=== PATIENT | male | born 1940 | race Caucasian/White ===

== ENCOUNTER 2024-10-01 07:49 | Emergency (ER) | payer OTHER ==
[~2024-10-01] VITALS: Ht 175.3 cm; Wt 75.0 kg
[~2024-10-01 07:49] MED LIST: ASPI81CH43; GLIP10TA21; LISI10TA34; METO-289; Metformin Hcl; SITA50TA; [UNRECOGNIZED DRUG - CODE]
[2024-10-01 08:23] VITALS: PULSE 66; RESP 20; O2SAT 96
--- NOTE | 2024-10-01 08:40 | DVH ---
CLINICAL INFORMATION: 83 years old, Male; SHORTNESS OF BREATH. TECHNIQUE: Single AP portable chest radiograph was obtained. COMPARISON: None FINDINGS: Lungs: Blunting of the right costophrenic angle suggesting small right pleural effusion with overlyin g atelectasis and/or consolidation. Mild atelectasis in the left lung base. Cardiac: Heart size is within normal limits. Pacemaker leads extend to the right atrium and right domenico tricle. Pulmonary vasculature: Mildly prominent pulmonary vasculature. Mediastinum/frank: Dense atherosclerotic calcification of the thoracic aorta. Bones: No acute osseous abnormality identified. Other: No other significant findings. IMPRESSION: 1. Small right pleural effusion with overlying atelectasis and/or consolidation. 2. Prominence of the pulmonary vasculature may be seen with a degree of pulmonary vascular congestion in the appropriate clinical setting.
--- NOTE | 2024-10-01 08:49 | ED.PDOC ---
SOB-HPI HPI Comments 83M BIBA w/ prior Hx of AFIB, MO and pacemaker which all may be associated to the c/c of SOB. Pt reports on having the SOB for 1 hour and was unable to walk and that it is "hard to breathe" which is also associated w/ bilateral Edema. PMHx of DM, HTN and Iron Transfusion. SHx of Right big toe amputation. Denies chills, fever, N/V/D, CP or other associated symptom's, modifiers, or recent injuries or sick contact at this time. Chief Complaint: Shortness of Breath Time Seen by MD: 08:10 Primary Care Provider: UNKNOWN Reviewed notes: Nurses Notes, Bark Fitter Notes, Medications, Allergies Information Source: Patient, Emergency Med Personnel Mode of Arrival: EMS Severity: Moderate Timing: Minutes Duration: Since onset, Minutes Context: At Rest PE Risk Factors: None History of: None Prehospital treatment: None Past Medical History PAST MEDICAL HISTORY: AFIB, DM, HTN, MO Past Medical History (Other): Iron Transfusion Surgical History: Pacemaker Surgical History (Other): Right big Toe Amputee Family History Family History: Reviewed,noncontributory to illness, Unknown Social History Smoker: Non-Smoker Alcohol: Denies ETOH Use Drugs: Denies Drug Use Lives In: Home Constitutional: denies: chills, diaphoresis, fatigue, fever, malaise, sweats, weakness, others EENTM: denies: blurred vision, double vision, ear bleeding, ear discharge, ear drainage, ear pain, ear ringing, eye pain, eye redness, hearing loss, mouth pain , mouth swelling, nasal discharge, nose bleeding, nose congestion, nose pain, photophobia, tearing, throat pain, throat swelling, voice changes, others Respiratory: reports: shortness of breath; denies: cough, hemoptysis, orthopnea, SOB at rest, SOB with excertion, stridor, wheezing, others Cardiovascular: reports: edema (Bilateral); denies: chest pain, dizzy spells, diaphoresis, Dyspnea on exertion, irregular heart beat, left arm pain, lightheadedness, palpitations, PND, syncope, others Gastrointestinal: denies: abdomen distended, abdominal pain, blood streaked bowels, constipated, diarrhea, dysphagia, difficulty swallowing, hematemesis, melena, nausea, poor appetite, poor fluid intake, rectal bleeding, rectal pain, vomiting, others Genitourinary: denies: burning, dysuria, flank pain, frequency, hematuria, incontinence, penile discharge, penile sore, pain, testicle pain, testicle swelling, urgency, others Neurological: denies: dizziness, fainting, headache, left sided numbness, left sided weakness, numbness, paresthesia, pre-existing deficit, right sided numbness, right sided weakness, seizure, speech problems, tingling, tremors, weakness, others Musculoskeletal: denies: back pain, gout, joint pain, joint swelling, muscle pain, muscle stiffness, neck pain, others Integumetry: denies: bruises, change in color, change in hair/nails, dryness, laceration, lesions, lumps, rash, wounds, others Allergic/Immunocompromised: denies: Difficulty Healing, Frequent Infections, Hives, Itching, others Hematologic/Lymphatic: denies: anemia, blood clots, easy bleeding, easy bruising, swollen glands, others Endocrine: denies: excessive hunger, excessive sweating, excessive thirst, excessive urination, flushing, intolerance to cold, intolerance to heat, unexplained weight gain, unexplained weight loss, others Psychiatric: denies: anxiety, bipolar disorder, depression, hopeless, panic disorder, schizophrenia, sleepless, suicidal, others All Other Systems: Reviewed and Negative Physical Exam General Appearance: No Apparent Distress, Normal HEENT: Normal ENT Inspection, PERRL/EOMI, Pharynx Normal, TMs Normal Neck: Full Range of Motion, Non-Tender, Normal, Normal Inspection Respiratory: Chest Non-Tender, Crackles, Decreased Breath Sounds, Expiration, Inspiration, No Accessory Muscle Use, No Respiratory Distress Cardiovascular: No Edema, No JVD, No Murmur, No Gallop, Normal Peripheral Pulses, Regular Rate/Rhythm Breast Exam: Deferred Gastrointestinal: No Organomegaly, Non Tender, No Pulsatile Mass, Normal Bowel Sounds, Soft Genitalia: Deferred Pelvic: Deferred Rectal: Deferred Extremities: Leg edema, No calf tenderness, Normal capillary refill, Normal inspection, Normal range of motion, Non-tender, Pedal edema Musculoskeletal : Apperance: Normal Neurologic: Alert, environmental lawyer II-XII nml as Tested, No Motor Deficits, Normal Affect, Normal Mood, No Sensory Deficits Cerebellar Function: Normal Reflexes: Normal Skin: Dry, Normal Color, Warm Peripheral Pulses: 1+ carotid (R), 1+ carotid (L) Lymphatic: No Adenopathy EKG EKG : Pulse Rate (adult): 77 Cardiac Rhythm: Paced Was a procedure done? Was a procedure done?: No Differential Dx Differential Diagnosis: Bronchitis, CHF, COPD, Dysrhythmia, Hypertension, Hyponatremia, Myocardial infarction, Pneumonia, Sinusitis, URI X-Ray, Labs, Meds, VS Vital Signs Date Time Temp Pulse Resp B/P (MAP) Pulse Ox O2 Delivery O2 Flow Rate FiO2 10/01/24 14:00 67 27 109/46 (67) 94 10/01/24 12:00 60 24 114/44 (67) 97 10/01/24 12:00 62 10/01/24 10:00 60 24 105/38 (60) 95 10/01/24 09:06 129/45 10/01/24 08:52 77 10/01/24 08:25 70 10/01/24 08:23 66 20 96 Nasal Cannula* 2 28 10/01/24 08:11 98.0 77 15 157/47 (83) 97 98.0 10/01/24 07:57 99.0 74 18 161/62 (95) 96 10/01/24 07:49 77 Lab Test 10/01/24 11:53 10/01/24 08:28 Range/Units Urine Color Yellow Yellow Urine Clarity Clear Clear Urine pH 5.0 5.0-9.0 Urine Specific [place] 1.012 1.001-1.035 Urine Protein Negative Negative Urine Ketones Negative Negative Urine Blood Negative Negative /uL Urine Nitrite Negative Negative Urine Bilirubin Negative Negative Urine Urobilinogen Normal Negative mg/dL Urine Leukocyte Esterase Negative Negative /uL Urine RBC 1 0 - 3 /hpf Urine Microscopic WBC 1 0-3 /HPF Urine Squamous Epithelial Cells Few <5 /hpf Urine Bacteria None seen None Seen /hpf Urine Glucose Normal Normal mg/dL White Blood Count 10.1 4.4-10.8 10^3/uL Red Blood Count 2.54 L 4.5-5.90 10^6/uL Hemoglobin 7.2 L 13.5-17.5 g/dL Hematocrit 22.9 L 41.0-53.0 % Mean Corpuscular Volume 90.3 80.0-100.0 fL Mean Corpuscular Hemoglobin 28.5 28.0-32.0 pg Mean Corpuscular Hemoglobin Concent 31.6 L 32.0-36.0 g/dL Red Cell Distribution Width 20.8 H 11.8-14.3 % Platelet Count 207 140-450 10^3/uL Mean Platelet Volume 8.8 6.9-10.8 fL Neutrophils (%) (Auto) 93.4 H 37.0-80.0 % Lymphocytes (%) (Auto) 3.0 L 10.0-50.0 % Monocytes (%) (Auto) 3.2 0.0-12.0 % Eosinophils (%) (Auto) 0.1 0.0-7.0 % Basophils (%) (Auto) 0.3 0.0-2.0 % Neutrophils # (Auto) 9.5 H 1.6-8.6 10 ^3/uL Lymphocytes # (Auto) 0.3 L 0.4-5.4 10 ^3/uL Monocytes # (Auto) 0.3 0-1.3 10 ^3/uL Eosinophils # (Auto) 0 0-0.8 10 ^3/uL Basophils # (Auto) 0 0-0.2 10 ^3/uL Nucleated Red Blood Cells 0.2 % Prothrombin Time 12.4 H 9.3-11.8 sec Prothrombin Time INR 1.19 H 0.9-1.15 Activated Partial Thromboplast Time 30.3 24.5-34.5 SEC Sodium Level 142 136-145 mmol/L Potassium Level 4.5 3.5-5.1 mmol/L Chloride Level 109 H 98-107 mmol/L Carbon Dioxide Level 24 20-31 mmol/L Anion Gap 9 5-15 Blood Urea Nitrogen 44 H 9-23 mg/dL Creatinine 2.06 H 0.700-1.30 mg/dL Glomerular Filtration Rate Calc 31 >90 mL/min BUN/Creatinine Ratio 21.4 H 10.0-20.0 Serum Glucose 163 H 74-106 mg/dL Calcium Level 8.9 8.7-10.4 mg/dL Magnesium Level 2.5 1.6-2.6 mg/dL Total Bilirubin 0.9 0.2-1.0 mg/dL Aspartate Amino Transferase (AST) 18 13-40 U/L Alanine Aminotransferase (ALT) 20 7-40 U/L Alkaline Phosphatase 97 46-116 U/L Troponin I High Sensitivity 20 </=54 ng/L B-Type Natriuretic Peptide 446.99 0-100 pg/mL Total Protein 6.0 5.7-8.2 g/dL Albumin 4.0 3.2-4.8 g/dL Current Medications Medications (Trade) Dose Ordered Sig/Daniel Route Start Time Stop Time Status Last Admin Furosemide (Lasix Injection) 20 mg ONCE ONCE IV 10/01/24 08:45 10/01/24 08:46 DC 10/01/24 09:06 Spironolactone (Aldactone) 25 mg ONCE ONCE PO 10/01/24 08:45 10/01/24 08:46 DC 10/01/24 09:05 X-Ray, Labs, Meds, VS Comment Course in the emergency department eventful patient came in complaining of short ness of breath and history of hypertension diabetes atrial fibrillation and also has a pacemaker and recent iron transfusion The chest x-ray shows pleural effusion and pulmonary vascular congestion The EKG shows normal sinus rhythm at 77 paste CBC 65200 with 93 0.4% neutrophils H&H 7.2 and 23 BNP 446.99 INR 1.19 CMP GFR of 31 with blood sugar at 163 and magnesium at 2.5 Patient is a [facility] member Consulted with who accepted the transfer COVID-19 influenza a and B pending ordered by [facility] doctor Time of 1ST Reevaluation: 08:40 Reevaluation 1ST: Unchanged Time of 2ND Reevaluation: 13:10 Reevaluation 2ND: Improved Consultation: PCP, Cardiology Patient Education/Counseling: Diagnosis, Treatment, Prognosis, Need For Follow Up Family Education/Counseling: Diagnosis, Treatment, Prognosis, Need For Follow Up, Other (Bowels at bedside) Departure 1 Departure Time of Disposition: 14:43 Impression: Primary Impression: Congestive heart failure Qualified Codes: I50.43 - Acute on chronic combined systolic (congestive) and diastolic (congestive) heart failure Additional Impressions: Hypertension Qualified Codes: 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 Recurrent right pleural effusion Infiltrate of lower lobe of right lung present on imaging study CKD (chronic kidney disease) stage 3, GFR 30-59 ml/min Qualified Codes: N18.32 - Chronic kidney disease, 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 Electronically submitted by Barak Everett ([email or web address]). PRADEEP MAYO MD Oct 01, 2024 08:49
[2024-10-01 09:01] LABS: Basophils # (auto) 0 10 ^3/uL (0-0.2); Basophils % (auto) 0.3 % (0.0-2.0); Eosinophils # (auto) 0 10 ^3/uL (0-0.8); Eosinophils % (auto) 0.1 % (0.0-7.0); Hematocrit 22.9 % (41.0-53.0); Hemoglobin 7.2 g/dL (13.5-17.5); Lymphocytes # (auto) 0.3 10 ^3/uL (0.4-5.4); Mean Corpuscular Hemoglobin 28.5 pg (28.0-32.0); Mean Corpuscular Hgb Conc. 31.6 g/dL (32.0-36.0); Mean Corpuscular Volume 90.3 fL (80.0-100.0); Monocytes # (auto) 0.3 10 ^3/uL (0-1.3); Monocytes % (auto) 3.2 % (0.0-12.0); Neutrophils # (auto) 9.5 10 ^3/uL (1.6-8.6); Neutrophils % (auto) 93.4 % (37.0-80.0); Nucleated Red Blood Cells % 0.2 %; Platelet Count (auto) 207 10^3/uL (140-450); Red Blood Cells 2.54 10^6/uL (4.5-5.90); Red Cell Distribution Width 20.8 % (11.8-14.3); White Blood Cell 10.1 10^3/uL (4.4-10.8)
[2024-10-01 09:04] LABS: Alanine Aminotransferase 20 U/L (7-40); Alkaline Phosphatase 97 U/L (46-116); Anion Gap 9 (5-15); Aspartate Aminotransferase 18 U/L (13-40); BUN/Creatinine Ratio 21.4 (10.0-20.0); Bilirubin, Total 0.9 mg/dL (0.2-1.0); Calcium 8.9 mg/dL (8.7-10.4); Carbon Dioxide 24 mmol/L (20-31); Potassium 4.5 mmol/L (3.5-5.1); Sodium 142 mmol/L (136-145)
[2024-10-01] MEDS: SPIRONOLACTONE 25 MG TAB PO ONE (09:05)
[2024-10-01] MEDS: SODIUM CHLORIDE 0.9% 1,000 ML IV ONE (09:06)
[2024-10-01] MEDS: FUROSEMIDE 20 MG/2 ML VIAL IV ONE (09:06)
[2024-10-01 09:08] LABS: INR 1.19 (0.9-1.15); Partial Thromboplastin Time 30.3 SEC (24.5-34.5); Prothrombin Time 12.4 sec (9.3-11.8)
[2024-10-01 09:38] LABS: Blood Urea Nitrogen 44 mg/dL (9-23); Chloride 109 mmol/L (98-107); Glucose 163 mg/dL (74-106)
[2024-10-01 11:53] LABS: Urine Bacteria None Seen /hpf (None Seen)
[2024-10-01 12:12] LABS: Urine Blood Negative /uL (Negative); Urine Clarity Clear (Clear); Urine Color Yellow (Yellow); Urine Protein, UAD Negative (Negative); Urine Specific Gravity 1.012 (1.001-1.035); Urine Squamous Epithelial Cell FEW /hpf (<5); Urine Urobilinogen Normal (Negative)
[2024-10-01 12:13] LABS: Urine WBC 1 /HPF (0-3)
[2024-10-01 15:54] VITALS: BP 122/41; PULSE 67; RESP 23; TEMP 97.3; O2SAT 95
--- NOTE | 2024-10-02 19:20 | ECG ---
[facility] Test Date: 2024-10-01 Test Time: 07:49:28 Pat Name: FARTUN LAMBERT Department: er Room: Gender: Budget Specialist: j : 1940 Requested By: PRADEEP MAYO Order Number: [id number] Reading MD: Rory Mancini Measurements Intervals [place] Rate: 77 P: 0 ME: 152 QRS: -87 QRSD: 152 T: 86 QT: 405 QTc: 459 Interpretive Statements Ventricular-paced rhythm No further analysis attempted due to paced rhythm Electronically Signed On 10-03-2024 8:24:09 PST by Rory Mancini Please click the below link to view image of tracing.
== END 2024-10-01 16:07 | disposition short-term general hospital (02) ==
LOC: ER 07:49 → EDBD 07:49 → ER 16:07
DX: I13.0 Hypertensive heart and chronic kidney disease with heart failure and stage 1 through stage 4 chronic kidney disease, or unspecified chronic kidney disease (principal); I50.9 Heart failure, unspecified; N18.30 Chronic kidney disease, stage 3 unspecified; J90 Pleural effusion, not elsewhere classified; R91.8 Other nonspecific abnormal finding of lung field; D63.1 Anemia in chronic kidney disease; I48.91 Unspecified atrial fibrillation; E11.22 Type 2 diabetes mellitus with diabetic chronic kidney disease; I25.2 Old myocardial infarction; Z95.0 Presence of cardiac pacemaker; Z98.890 Other specified postprocedural states
CPT/HCPCS: 36415; 71045; 80053; 81001; 83735; 83880; 84484; 85025; 85610; 85730; 93005; 96374; 99285; J1940